=== PATIENT | female | born 1935 | race Caucasian/White ===

== ENCOUNTER 2017-10-04 08:14 | Inpatient (IN) ==
[2017-10-04] MEDS ORDERED: ALBUTEROL 2.5 MG/3 ML NEB RESP TX STA (08:53)
[2017-10-04] MEDS ORDERED: FUROSEMIDE 100 MG/10 ML VIAL IV STA (08:53)
[2017-10-04] MEDS ORDERED: DILTIAZEM 50 MG/10 ML VIAL IV STA (09:05)
[2017-10-04 09:24] LABS: Basophils % 0.3 % (0.0-0.8); Eosinophils % 0.1 % (0.00-10.9); Hematocrit 36.2 VOL% (35.7-47.0); Immature Granulocytes % 0.8 %; Immature Granulocytes Absolute 0.12 #; Lymphocytes # 1.2 10*3/uL (1.4-4.0); Lymphocytes % 7.5 % (21.3-54.2); Mean Corpuscular HGB Conc 30.4 GM/DL (32-36); Mean Corpuscular Hemoglobin 28 PG (27-34); Mean Corpuscular Volume 92.6 FL (87-102); Mean Platelet Volume 10.6 FL (9.6-12.0); Monocytes # 0.6 10*3/uL (0.11-0.8); Monocytes % 3.9 % (1.7-12.7); Neutrophils # 13.4 10*3/uL (1.4-7.4); Neutrophils % 87.4 % (38.7-73.9); Platelet Count 317 T/CUMM (130-400); Red Blood Count 3.91 MC/CUMM (3.8-5.5); Red Cell Distribution Width 14.2 % (9.3-17.3); White Blood Count 15.3 T/CUMM (4-12)
[2017-10-04] MEDS ORDERED: DILTIAZEM INJ 100 MG in SODIUM CHLORIDE 0.9% 100 ML IV SCH (09:30)
[2017-10-04 09:32] LABS: INR 1.2; PT Patient Result 12.6 SECS; Partial Thromboplastin Time 26.3 SECS (0-40)
[2017-10-04] MEDS ORDERED: AMIODARONE 150 MG/3 ML VIAL ONE (09:40)
[2017-10-04] MEDS ORDERED: AMIODARONE INJ 150 MG in DEXTROSE 5% 100 ML IV ONE (09:41)
[2017-10-04] MEDS ORDERED: AMIODARONE 450 MG/9 ML VIAL IV ONE (09:41)
[2017-10-04 09:56] LABS: Albumin 3.7 G/DL (3.4-5.0); Bilirubin,Total 0.4 MG/DL (0.2-1.0); Calcium 9.2 MG/DL (8.5-10.1); Osmolality,Calculated 293.8 MOS/KG (273-304); Potassium 5.3 MMOL/L (3.5-5.1); Total Protein 8.3 G/DL (6.4-8.3)
[2017-10-04] MEDS ORDERED: AMIODARONE INJ 450 MG in DEXTROSE 5% 241 ML IV SCH (10:00)
[2017-10-04] MEDS ORDERED: DEXTROSE 50% 25 GM/50 ML VIAL IV STA (10:42)
[2017-10-04] MEDS ORDERED: INSULIN REGULAR 100 UNIT/ML IV STA (10:42)
[2017-10-04] MEDS ORDERED: SODIUM BICARBONATE 50 MEQ/50 ML VIAL IV STA (10:43)
[2017-10-04] MEDS ORDERED: DEXTROSE 50% 25 GM/50 ML SYRINGE IV ONE (11:33)
[2017-10-04] MEDS ORDERED: MAGNESIUM SULF RIDER 2 GM in PREMIX 1 EACH IV PRN (12:06)
[2017-10-04] MEDS ORDERED: ONDANSETRON 4 MG/2 ML VIAL IV PRN (12:06)
[2017-10-04] MEDS ORDERED: MAGNESIUM SULF RIDER 4 GM in PREMIX 1 EACH IV PRN (12:06)
[2017-10-04] MEDS ORDERED: ACETAMINOPHEN 325 MG TABLET PO PRN (12:06)
[2017-10-04] MEDS ORDERED: LACTULOSE 20 GM/30 ML UDCUP PO PRN (12:06)
[2017-10-04] MEDS ORDERED: DOCUSATE SODIUM 100 MG CAPSULE PO PRN (12:06)
[2017-10-04] MEDS ORDERED: MORPHINE 4 MG/1 ML VIAL IV PRN (12:06)
[2017-10-04] MEDS ORDERED: POTASSIUM CHLORIDE 20 MEQ TABLET PO PRN (12:06)
[2017-10-04] MEDS ORDERED: POTASSIUM CHLORIDE RIDER 10 MEQ in PREMIX 1 EACH IV PRN (12:06)
[2017-10-04 12:46] LABS: Amorphous Crystals,Urine Occasional /HPF (Few); Apearance,Urine Slightly Hazy (Clear); Bacteria,Urine Few /HPF (Few); Bilirubin,Urine Negative (Negative); Blood, Urine Negative (Negative); Glucose,Urine (UA) 50 mg/dL (Negative); Hyaline Casts,Urine 1 /LPF (0-3); Ketones,Urine Negative (Negative); Nitrite,Urine Negative (Negative); Protein,Urine 100 MG/DL; Urine Color Yellow (Yellow); Urine Specific Gravity 1.012 (1.001-1.035); Urine Urobilinogen < 2.0 EU/DL (0.2-1.0); WBC,Urine 2 /HPF (0-6)
[2017-10-04] MEDS ORDERED: DEXTROSE 50% 25 GM/50 ML VIAL IV PRN (14:38)
[2017-10-04] MEDS ORDERED: GLUCAGON 1 MG VIAL IM PRN (14:38)
[2017-10-04] MEDS ORDERED: LEVOFLOXACIN INJ 750 MG in PREMIX 1 EACH IV ONE (15:00)
[2017-10-04] MEDS ORDERED: ENOXAPARIN 60 MG/0.6 ML SYRINGE SUBCUT ONE (15:00)
[2017-10-04] MEDS: ASPIRIN CHEW 81 MG TABLET PO SCH (15:17)
[2017-10-04] MEDS: FUROSEMIDE 40 MG/4 ML VIAL IV SCH (15:17)
[2017-10-04] MEDS ORDERED: SODIUM POLYSTYRENE SULFATE 15 GM/60 ML BOTTLE PO ONE (15:30)
[2017-10-04] MEDS: INSULIN REGULAR 100 UNIT/ML SUBCUT SCH ×2 (17:36→21:18)
[2017-10-04] MEDS: ROSUVASTATIN 20 MG TABLET PO SCH (21:17)
[2017-10-04] MEDS: CARVEDILOL 12.5 MG TABLET PO SCH (21:17)
[2017-10-04] MEDS: INSULIN GLARGINE 100 UNIT/ML SUBCUT SCH (21:18)
[2017-10-04] MEDS: MEMANTINE 10 MG TABLET PO SCH (21:18)
[2017-10-04] MEDS ORDERED: NITROGLYCERIN SL 0.4 MG TABLET SL ONE (21:53)
[2017-10-04] MEDS ORDERED: NITROGLYCERIN SL 0.4 MG TABLET SL PRN (22:00)
[2017-10-04] MEDS ORDERED: METOPROLOL TARTRATE 5 MG/5 ML VIAL IV ONE (22:10)
[2017-10-05] MEDS ORDERED: HALOPERIDOL 5 MG/ML AMP IM ONE (01:30)
[2017-10-05 06:10] LABS: Basophils % 0.4 % (0.0-0.8); Eosinophils % 0.4 % (0.00-10.9); Hemoglobin 9.2 GM/DL (12.0-16.0); Immature Granulocytes % 0.4 %; Immature Granulocytes Absolute 0.04 #; Lymphocytes # 2.1 10*3/uL (1.4-4.0); Lymphocytes % 20.9 % (21.3-54.2); Mean Corpuscular HGB Conc 32.9 GM/DL (32-36); Mean Corpuscular Hemoglobin 29 PG (27-34); Mean Platelet Volume 11.1 FL (9.6-12.0); Monocytes # 0.6 10*3/uL (0.11-0.8); Monocytes % 6.3 % (1.7-12.7); Neutrophils # 7.2 10*3/uL (1.4-7.4); Neutrophils % 71.6 % (38.7-73.9); Platelet Count 206 T/CUMM (130-400); Red Blood Count 3.22 MC/CUMM (3.8-5.5); Red Cell Distribution Width 14.4 % (9.3-17.3)
[2017-10-05 06:54] LABS: Calcium 8.3 MG/DL (8.5-10.1); Osmolality,Calculated 289.7 MOS/KG (273-304); Potassium 3.9 MMOL/L (3.5-5.1); Thyroid Stimulating Hormone 2.41 uIU/ml (0.358-3.74)
[2017-10-05] MEDS: MONTELUKAST 10 MG TABLET PO SCH (10:41)
[2017-10-05] MEDS: MEMANTINE 10 MG TABLET PO SCH ×2 (10:41→20:44)
[2017-10-05] MEDS: ASPIRIN CHEW 81 MG TABLET PO SCH (10:41)
[2017-10-05] MEDS: PANTOPRAZOLE 40 MG TABLET PO SCH (10:42)
[2017-10-05] MEDS: amLODIPine 2.5 MG TABLET PO SCH (10:43)
[2017-10-05] MEDS: DONEPEZIL 10 MG TABLET PO SCH (10:44)
[2017-10-05] MEDS: CARVEDILOL 12.5 MG TABLET PO SCH ×2 (10:44→20:49)
[2017-10-05] MEDS: INSULIN GLARGINE 100 UNIT/ML SUBCUT SCH ×2 (10:45→20:42)
[2017-10-05] MEDS: FUROSEMIDE 40 MG/4 ML VIAL IV SCH ×2 (10:46→15:38)
[2017-10-05] MEDS: INSULIN REGULAR 100 UNIT/ML SUBCUT SCH ×4 (10:53→21:17)
[2017-10-05] MEDS: DIGOXIN 0.125 MG TABLET PO SCH (13:33)
[2017-10-05] MEDS: ENOXAPARIN 60 MG/0.6 ML SYRINGE SUBCUT SCH (15:38)
[2017-10-05] MEDS: ROSUVASTATIN 20 MG TABLET PO SCH (20:44)
[2017-10-06 04:45] LABS: Basophils % 0.6 % (0.0-0.8); Eosinophils # 0.1 10*3/uL (0.0-0.87); Eosinophils % 1.8 % (0.00-10.9); Hematocrit 28.2 VOL% (35.7-47.0); Immature Granulocytes % 0.4 %; Immature Granulocytes Absolute 0.03 #; Lymphocytes # 1.9 10*3/uL (1.4-4.0); Lymphocytes % 27.6 % (21.3-54.2); Mean Corpuscular HGB Conc 31.9 GM/DL (32-36); Mean Corpuscular Hemoglobin 29 PG (27-34); Mean Corpuscular Volume 89.2 FL (87-102); Mean Platelet Volume 10.6 FL (9.6-12.0); Monocytes # 0.6 10*3/uL (0.11-0.8); Monocytes % 8.7 % (1.7-12.7); Neutrophils # 4.3 10*3/uL (1.4-7.4); Neutrophils % 60.9 % (38.7-73.9); Platelet Count 202 T/CUMM (130-400); Red Blood Count 3.16 MC/CUMM (3.8-5.5); Red Cell Distribution Width 14.4 % (9.3-17.3)
[2017-10-06 05:08] LABS: Calcium 8.2 MG/DL (8.5-10.1); Calcium 8.7 MG/DL (8.5-10.1); Osmolality,Calculated 289.5 MOS/KG (273-304); Osmolality,Calculated 291.4 MOS/KG (273-304); Potassium 3.7 MMOL/L (3.5-5.1)
[2017-10-06] MEDS: INSULIN REGULAR 100 UNIT/ML SUBCUT SCH ×4 (08:42→20:11)
[2017-10-06] MEDS: MONTELUKAST 10 MG TABLET PO SCH (08:43)
[2017-10-06] MEDS: INSULIN GLARGINE 100 UNIT/ML SUBCUT SCH ×2 (08:43→21:10)
[2017-10-06] MEDS: DONEPEZIL 10 MG TABLET PO SCH (08:43)
[2017-10-06] MEDS: MEMANTINE 10 MG TABLET PO SCH ×2 (08:44→21:08)
[2017-10-06] MEDS: PANTOPRAZOLE 40 MG TABLET PO SCH (08:44)
[2017-10-06] MEDS: CARVEDILOL 12.5 MG TABLET PO SCH ×2 (08:44→21:10)
[2017-10-06] MEDS: ASPIRIN CHEW 81 MG TABLET PO SCH (08:44)
[2017-10-06] MEDS: amLODIPine 2.5 MG TABLET PO SCH (08:44)
[2017-10-06] MEDS: FUROSEMIDE 40 MG/4 ML VIAL IV SCH (08:53)
[2017-10-06] MEDS: DIGOXIN 0.125 MG TABLET PO SCH (12:52)
[2017-10-06] MEDS: CEFUROXIME 500 MG TABLET PO SCH ×2 (12:52→21:10)
[2017-10-06] MEDS ORDERED: LEVOFLOXACIN 500 MG TABLET PO SCH (15:00)
[2017-10-06] MEDS ORDERED: LEVOFLOXACIN INJ 500 MG in PREMIX 1 EACH IV SCH (15:00)
[2017-10-06] MEDS: ENOXAPARIN 60 MG/0.6 ML SYRINGE SUBCUT SCH (15:06)
[2017-10-06] MEDS: ROSUVASTATIN 20 MG TABLET PO SCH (21:08)
[2017-10-07] MEDS: HALOPERIDOL 5 MG/ML AMP IV PRN (00:26)
[2017-10-07 05:31] LABS: Basophils % 0.3 % (0.0-0.8); Eosinophils # 0.1 10*3/uL (0.0-0.87); Hematocrit 29.2 VOL% (35.7-47.0); Hemoglobin 9.5 GM/DL (12.0-16.0); Immature Granulocytes % 0.2 %; Immature Granulocytes Absolute 0.01 #; Lymphocytes # 1.2 10*3/uL (1.4-4.0); Lymphocytes % 19.8 % (21.3-54.2); Mean Corpuscular HGB Conc 32.5 GM/DL (32-36); Mean Corpuscular Hemoglobin 28 PG (27-34); Mean Corpuscular Volume 86.6 FL (87-102); Mean Platelet Volume 10.8 FL (9.6-12.0); Monocytes # 0.5 10*3/uL (0.11-0.8); Monocytes % 8.8 % (1.7-12.7); Neutrophils # 4.1 10*3/uL (1.4-7.4); Neutrophils % 68.9 % (38.7-73.9); Platelet Count 202 T/CUMM (130-400); Red Blood Count 3.37 MC/CUMM (3.8-5.5); Red Cell Distribution Width 14.2 % (9.3-17.3)
[2017-10-07 05:59] LABS: Calcium 8.7 MG/DL (8.5-10.1); Osmolality,Calculated 289.4 MOS/KG (273-304); Potassium 3.7 MMOL/L (3.5-5.1)
[2017-10-07] MEDS: INSULIN REGULAR 100 UNIT/ML SUBCUT SCH ×4 (07:19→20:00)
[2017-10-07] MEDS: FUROSEMIDE 40 MG/4 ML VIAL IV SCH (08:47)
[2017-10-07] MEDS: CEFUROXIME 500 MG TABLET PO SCH ×3 (09:15→20:53)
[2017-10-07] MEDS: ASPIRIN CHEW 81 MG TABLET PO SCH (09:15)
[2017-10-07] MEDS: MONTELUKAST 10 MG TABLET PO SCH (09:16)
[2017-10-07] MEDS: MEMANTINE 10 MG TABLET PO SCH ×2 (09:16→20:53)
[2017-10-07] MEDS: INSULIN GLARGINE 100 UNIT/ML SUBCUT SCH ×2 (09:16→20:00)
[2017-10-07] MEDS: PANTOPRAZOLE 40 MG TABLET PO SCH (09:16)
[2017-10-07] MEDS: DONEPEZIL 10 MG TABLET PO SCH (09:16)
[2017-10-07] MEDS: CARVEDILOL 12.5 MG TABLET PO SCH ×2 (09:16→20:53)
[2017-10-07] MEDS: amLODIPine 2.5 MG TABLET PO SCH (09:16)
[2017-10-07] MEDS: ENOXAPARIN 60 MG/0.6 ML SYRINGE SUBCUT SCH (14:07)
[2017-10-07] MEDS: DIGOXIN 0.125 MG TABLET PO SCH (14:08)
[2017-10-07] MEDS: ROSUVASTATIN 20 MG TABLET PO SCH (20:53)
[2017-10-08] MEDS: HALOPERIDOL 5 MG/ML AMP IV PRN ×2 (00:16→23:58)
[2017-10-08 05:28] LABS: Basophils % 0.5 % (0.0-0.8); Eosinophils # 0.1 10*3/uL (0.0-0.87); Eosinophils % 1.5 % (0.00-10.9); Hematocrit 29.4 VOL% (35.7-47.0); Hemoglobin 9.6 GM/DL (12.0-16.0); Immature Granulocytes % 0.3 %; Immature Granulocytes Absolute 0.02 #; Lymphocytes # 1.3 10*3/uL (1.4-4.0); Lymphocytes % 22.3 % (21.3-54.2); Mean Corpuscular HGB Conc 32.7 GM/DL (32-36); Mean Corpuscular Hemoglobin 29 PG (27-34); Mean Corpuscular Volume 88.6 FL (87-102); Mean Platelet Volume 10.5 FL (9.6-12.0); Monocytes # 0.5 10*3/uL (0.11-0.8); Monocytes % 8.1 % (1.7-12.7); Neutrophils # 3.9 10*3/uL (1.4-7.4); Neutrophils % 67.3 % (38.7-73.9); Platelet Count 192 T/CUMM (130-400); Red Blood Count 3.32 MC/CUMM (3.8-5.5); Red Cell Distribution Width 14.2 % (9.3-17.3); White Blood Count 5.8 T/CUMM (4-12)
[2017-10-08 05:46] LABS: Calcium 8.1 MG/DL (8.5-10.1); Osmolality,Calculated 286.5 MOS/KG (273-304); Potassium 3.9 MMOL/L (3.5-5.1)
[2017-10-08] MEDS: PANTOPRAZOLE 40 MG TABLET PO SCH (09:00)
[2017-10-08] MEDS: MEMANTINE 10 MG TABLET PO SCH ×2 (09:00→21:26)
[2017-10-08] MEDS: INSULIN REGULAR 100 UNIT/ML SUBCUT SCH ×4 (09:00→21:25)
[2017-10-08] MEDS: ASPIRIN CHEW 81 MG TABLET PO SCH (09:01)
[2017-10-08] MEDS: DONEPEZIL 10 MG TABLET PO SCH (09:02)
[2017-10-08] MEDS: MONTELUKAST 10 MG TABLET PO SCH (09:04)
[2017-10-08] MEDS: CEFUROXIME 500 MG TABLET PO SCH ×2 (09:04→21:27)
[2017-10-08] MEDS: amLODIPine 2.5 MG TABLET PO SCH (09:04)
[2017-10-08] MEDS: FUROSEMIDE 40 MG/4 ML VIAL IV SCH (09:05)
[2017-10-08] MEDS: CARVEDILOL 12.5 MG TABLET PO SCH ×2 (09:05→21:26)
[2017-10-08 13:10] LABS: Total Protein,Pleural Fluid 1.7 G/DL
[2017-10-08 13:11] LABS: Lymphocytes,Pleural Fluid 57 %; Monocytes,Pleural Fluid 9 %; Neutrophils,Pleural Fluid 34 %
[2017-10-08 13:16] LABS: RBC,Pleural Fluid 1651 T/CUMM
[2017-10-08] MEDS: DIGOXIN 0.125 MG TABLET PO SCH (13:55)
[2017-10-08] MEDS: ENOXAPARIN 60 MG/0.6 ML SYRINGE SUBCUT SCH (15:50)
[2017-10-08] MEDS: INSULIN GLARGINE 100 UNIT/ML SUBCUT SCH (21:26)
[2017-10-08] MEDS: ROSUVASTATIN 20 MG TABLET PO SCH (21:27)
[2017-10-09 04:53] LABS: Basophils % 0.4 % (0.0-0.8); Eosinophils # 0.1 10*3/uL (0.0-0.87); Eosinophils % 1.5 % (0.00-10.9); Hematocrit 31.3 VOL% (35.7-47.0); Immature Granulocytes % 0.3 %; Immature Granulocytes Absolute 0.02 #; Lymphocytes # 1.3 10*3/uL (1.4-4.0); Lymphocytes % 16.8 % (21.3-54.2); Mean Corpuscular HGB Conc 31.9 GM/DL (32-36); Mean Corpuscular Hemoglobin 28 PG (27-34); Mean Corpuscular Volume 88.2 FL (87-102); Mean Platelet Volume 10.5 FL (9.6-12.0); Monocytes # 0.6 10*3/uL (0.11-0.8); Monocytes % 7.5 % (1.7-12.7); Neutrophils # 5.5 10*3/uL (1.4-7.4); Neutrophils % 73.5 % (38.7-73.9); Platelet Count 199 T/CUMM (130-400); Red Blood Count 3.55 MC/CUMM (3.8-5.5); Red Cell Distribution Width 13.9 % (9.3-17.3); White Blood Count 7.4 T/CUMM (4-12)
[2017-10-09 05:21] LABS: Calcium 8.7 MG/DL (8.5-10.1); Osmolality,Calculated 280.8 MOS/KG (273-304); Potassium 3.9 MMOL/L (3.5-5.1)
[2017-10-09] MEDS: DONEPEZIL 10 MG TABLET PO SCH (09:47)
[2017-10-09] MEDS: MONTELUKAST 10 MG TABLET PO SCH (09:47)
[2017-10-09] MEDS: ASPIRIN CHEW 81 MG TABLET PO SCH (09:47)
[2017-10-09] MEDS: CARVEDILOL 12.5 MG TABLET PO SCH (09:47)
[2017-10-09] MEDS: INSULIN REGULAR 100 UNIT/ML SUBCUT SCH ×2 (09:47→12:30)
[2017-10-09] MEDS: PANTOPRAZOLE 40 MG TABLET PO SCH (09:50)
[2017-10-09] MEDS: CEFUROXIME 500 MG TABLET PO SCH (09:50)
[2017-10-09] MEDS: FUROSEMIDE 40 MG/4 ML VIAL IV SCH (09:54)
[2017-10-09] MEDS: MEMANTINE 10 MG TABLET PO SCH (09:54)
[2017-10-09] MEDS: amLODIPine 2.5 MG TABLET PO SCH (09:54)
[2017-10-09] MEDS ORDERED: FLUCONAZOLE 100 MG TABLET PO ONE (11:34)
[2017-10-09 11:50] VITALS: BP 117/75
[2017-10-09] MEDS: DIGOXIN 0.125 MG TABLET PO SCH (12:27)
[2017-10-10] MEDS ORDERED: FUROSEMIDE 40 MG TABLET PO SCH (09:00)
== END 2017-10-09 13:18 | DRG 280 ==
LOC: EDBD → EDUNIT# → N.ED 08:14 → SUATTDRO 11:05 → N.EDINP 11:05 → N.TELEN 12:41
PROVIDERS: ADMIT Emergency Medicine; ATTEND Internal Medicine Geriatric Medicine

== ENCOUNTER 2017-11-01 07:29 | Inpatient (IN) ==
[2017-11-01 08:18] LABS: Basophils % 0.3 % (0.0-0.8); Eosinophils % 0.7 % (0.00-10.9); Hematocrit 32.4 VOL% (35.7-47.0); Immature Granulocytes % 0.3 %; Immature Granulocytes Absolute 0.02 #; Lymphocytes % 16.8 % (21.3-54.2); Mean Corpuscular HGB Conc 30.9 GM/DL (32-36); Mean Corpuscular Hemoglobin 28 PG (27-34); Mean Corpuscular Volume 90.5 FL (87-102); Mean Platelet Volume 11.5 FL (9.6-12.0); Monocytes # 0.3 10*3/uL (0.11-0.8); Monocytes % 4.8 % (1.7-12.7); Neutrophils # 4.5 10*3/uL (1.4-7.4); Neutrophils % 77.1 % (38.7-73.9); Platelet Count 170 T/CUMM (130-400); Red Blood Count 3.58 MC/CUMM (3.8-5.5); Red Cell Distribution Width 13.2 % (9.3-17.3); White Blood Count 5.9 T/CUMM (4-12)
[2017-11-01 08:26] LABS: INR 1.2; PT Patient Result 12.9 SECS
[2017-11-01] MEDS: DEXTROSE 5% NACL 0.45% 1,000 ML IV SCH ×2 (08:26→16:58)
[2017-11-01 08:33] LABS: Albumin 3.6 G/DL (3.4-5.0); Bilirubin,Total 0.4 MG/DL (0.2-1.0); Calcium 9.5 MG/DL (8.5-10.1); Osmolality,Calculated 302.8 MOS/KG (273-304); Potassium 3.7 MMOL/L (3.5-5.1); Total Protein 6.8 G/DL (6.4-8.3)
[2017-11-01 08:56] LABS: Apearance,Urine CLEAR (Clear); Bilirubin,Urine Negative (Negative); Blood, Urine Negative (Negative); Glucose,Urine (UA) 50 mg/dL (Negative); Hyaline Casts,Urine 1 /LPF (0-3); Ketones,Urine Negative (Negative); Mucus,Urine Occasional /LPF (Occasional); Nitrite,Urine Negative (Negative); Protein,Urine 100 MG/DL; Urine Color Yellow (Yellow); Urine Specific Gravity 1.012 (1.001-1.035); Urine Urobilinogen < 2.0 EU/DL (0.2-1.0); WBC,Urine <1 /HPF (0-6)
[2017-11-01] MEDS ORDERED: ACETAMINOPHEN 325 MG TABLET PO PRN (09:52)
[2017-11-01] MEDS ORDERED: LACTULOSE 20 GM/30 ML UDCUP PO PRN (09:52)
[2017-11-01] MEDS ORDERED: CALCIUM CARB PO SCH (15:00)
[2017-11-01] MEDS ORDERED: MAGNESIUM HYDROX PO SCH (15:00)
[2017-11-01] MEDS ORDERED: [UNRECOGNIZED DRUG - OTHER] PO SCH (15:00)
[2017-11-01] MEDS: ACETAMINOPHEN 500 MG TABLET PO SCH (20:49)
[2017-11-01] MEDS: ASCORBIC ACID 500 MG TABLET PO SCH (20:49)
[2017-11-01] MEDS: CARVEDILOL 3.125 MG TABLET PO SCH (20:49)
[2017-11-01] MEDS: MEMANTINE 10 MG TABLET PO SCH (20:49)
[2017-11-01] MEDS ORDERED: NITROFURANTOIN MACROCRYSTALS 50 MG CAPSULE PO SCH (21:00)
[2017-11-01] MEDS ORDERED: SODIUM CHLORIDE 0.45% 1,000 ML IV SCH (21:00)
[2017-11-01] MEDS ORDERED: ROSUVASTATIN 20 MG TABLET PO SCH (21:00)
[2017-11-02] MEDS ORDERED: FUROSEMIDE 40 MG/4 ML VIAL ONE (04:03)
[2017-11-02] MEDS ORDERED: NITROGLYCERIN SL 0.4 MG TABLET SL PRN (04:10)
[2017-11-02] MEDS ORDERED: FUROSEMIDE 40 MG/4 ML VIAL IV ONE ×2 (04:30→08:46)
[2017-11-02] MEDS ORDERED: LABETALOL 100 MG/20 ML VIAL IV ONE (04:30)
[2017-11-02 05:07] LABS: Basophils # 0.1 10*3/uL (0.0-0.2); Basophils % 0.5 % (0.0-0.8); Eosinophils # 0.2 10*3/uL (0.0-0.87); Eosinophils % 1.3 % (0.00-10.9); Hematocrit 34.5 VOL% (35.7-47.0); Hemoglobin 10.8 GM/DL (12.0-16.0); Immature Granulocytes % 0.5 %; Immature Granulocytes Absolute 0.06 #; Lymphocytes # 1.6 10*3/uL (1.4-4.0); Lymphocytes % 14.4 % (21.3-54.2); Mean Corpuscular HGB Conc 31.3 GM/DL (32-36); Mean Corpuscular Hemoglobin 28 PG (27-34); Mean Corpuscular Volume 90.8 FL (87-102); Mean Platelet Volume 11.1 FL (9.6-12.0); Monocytes # 0.6 10*3/uL (0.11-0.8); Monocytes % 5.1 % (1.7-12.7); Neutrophils # 8.7 10*3/uL (1.4-7.4); Neutrophils % 78.2 % (38.7-73.9); Platelet Count 280 T/CUMM (130-400); Red Cell Distribution Width 13.4 % (9.3-17.3); White Blood Count 11.2 T/CUMM (4-12)
[2017-11-02 05:18] LABS: Calcium 8.7 MG/DL (8.5-10.1); Osmolality,Calculated 289.3 MOS/KG (273-304); Potassium 3.9 MMOL/L (3.5-5.1)
[2017-11-02] MEDS ORDERED: DEXTROSE 50% 25 GM/50 ML VIAL IV PRN (08:29)
[2017-11-02] MEDS ORDERED: GLUCAGON 1 MG VIAL IM PRN (08:29)
[2017-11-02] MEDS ORDERED: amLODIPine 10 MG TABLET PO SCH (09:00)
[2017-11-02] MEDS ORDERED: FENOFIBRATE 145 MG TABLET PO SCH (09:00)
[2017-11-02] MEDS ORDERED: OMEGA 3 ACID ETHYL ESTERS 1 GM CAPSULE PO SCH (09:00)
[2017-11-02] MEDS ORDERED: FOLIC ACID 1 MG TABLET PO SCH (09:00)
[2017-11-02] MEDS ORDERED: amLODIPine 5 MG TABLET PO SCH (09:00)
[2017-11-02] MEDS ORDERED: FUROSEMIDE 20 MG TABLET PO SCH (09:00)
[2017-11-02] MEDS ORDERED: MONTELUKAST 10 MG TABLET PO SCH (09:00)
[2017-11-02] MEDS ORDERED: PANTOPRAZOLE 40 MG TABLET PO SCH (09:00)
[2017-11-02] MEDS ORDERED: ASPIRIN EC 81 MG TABLET PO SCH (09:00)
[2017-11-02] MEDS ORDERED: DONEPEZIL 10 MG TABLET PO SCH (09:00)
[2017-11-02] MEDS: ASCORBIC ACID 500 MG TABLET PO SCH (09:36)
[2017-11-02] MEDS: ACETAMINOPHEN 500 MG TABLET PO SCH (09:38)
[2017-11-02] MEDS: MEMANTINE 10 MG TABLET PO SCH (09:38)
[2017-11-02] MEDS: CARVEDILOL 3.125 MG TABLET PO SCH (09:38)
[2017-11-02] MEDS ORDERED: CARVEDILOL 3.125 MG TABLET PO ONE (11:01)
[2017-11-02] MEDS ORDERED: INSULIN LISPRO 100 UNIT/ML SUBCUT SCH (11:30)
[2017-11-02 11:57] VITALS: BP 141/71
[2017-11-02] MEDS ORDERED: DIGOXIN 0.125 MG TABLET PO SCH (13:00)
[2017-11-02] MEDS ORDERED: CARVEDILOL 6.25 MG TABLET PO SCH (21:00)
[2017-11-02] MEDS ORDERED: CARVEDILOL 12.5 MG TABLET PO SCH (21:00)
== END 2017-11-02 15:05 | DRG 638 ==
LOC: EDUNIT# → EDBD → N.ED 07:29 → N.EDINP 09:15 → N.2E 11:24
PROVIDERS: ADMIT Internal Medicine; ATTEND Internal Medicine